=== PATIENT | female | born 1995 | race African-American/Black ===

== ENCOUNTER 2018-11-09 03:28 | Emergency (ER) | payer BC ==
--- NOTE | 2018-11-09 04:04 | ED ---
Complex/Multi-Sys Presentation - HPI Summary HPI Summary: Pt is a 23 y/o F presenting to the ED with a chief complaint of chest pain. The last three days, she reports only sleeping 3.5 hours, and every time she falls asleep she gets panic attacks that jolt her awake. Tonight, she took two hydroxyzine at 0000 that did not help. She called the [place] emergency line who said it could have something to do with the Somis she takes and they recommended calling [id number] at 0256, but instead she drove herself. She has not been told whether or not she has bipolar disorder. She denies SI/HI, sore throat , cough, and chest pain from her heart rate constantly drastically changing. She reports fatigue and feeling chronically anxious. - History Of Current Complaint Chief Complaint: EDChestWallPain Time Seen by Provider: 11/09/18 03:37 Hx Obtained From: Patient Onset/Duration: Gradual Onset, Lasting Days, Still Present Timing: Constant, Days Severity Currently: Moderate Severity Initially: Moderate Location: Negative Aggravating Factor(s): none Alleviating Factor(s): none Associated Signs And Symptoms: Positive: Chest Pain, Other - fatigue, anxiety, insomnia. 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 Denies: Hx Congestive Heart Failure, Hx Hypertension GI History: Reports: Hx Irritable Bowel - DIAGNOSED IN 2013 History: Denies: Hx Renal Disease Sensory History: Reports: Hx Contacts or Glasses - CONTACTS Opthamlomology History: Reports: Hx Contacts or Glasses - CONTACTS Psychiatric History: Reports: Hx Anxiety, Hx Panic Disorder - Surgical History Surgery Procedure, Year, and Place: WHEN YOUNGER HAD TWO SURGERIES ONT MOUTH, DOESNT KNOW WHAT FOR Hx Anesthesia Reactions: Yes - PT REPORTS SLOW RECOVERY FROM GENERAL ANESTHESIA , AND FEELS PAIN WITH LOCAL Infectious Disease History: No Infectious Disease History: Denies: Traveled Outside the [place] in Last 30 Days - Family History Known Family History: Negative: Blood Disorder - Social History Alcohol Use: None Hx Substance Use: No Substance Use Type: Reports: None Hx Tobacco Use: No Smoking Status (MU): Never Smoked Tobacco Review of Systems Positive: Fatigue Negative: Sore Throat Positive: Chest Pain Negative: Cough Positive: Anxious All Other Systems Reviewed And Are Negative: Yes Physical Exam - Summary Physical Exam Summary: VITAL SIGNS: Reviewed. GENERAL: Patient is a well-developed and nourished female who is lying comfortable in the stretcher. Patient is not in any acute respiratory distress. HEAD AND FACE: No signs of trauma. No ecchymosis, hematomas or skull depressions. No sinus tenderness. EYES: PERRLA, EOMI x 2, No injected conjunctiva, no nystagmus. EARS: Hearing grossly intact. Ear canals and tympanic membranes are within normal limits. MOUTH: Oropharynx within normal limits. NECK: Supple, trachea is midline, no adenopathy, no JVD, no carotid bruit, no c- spine tenderness, neck with full ROM. CHEST: Symmetric, no tenderness at palpation LUNGS: Clear to auscultation bilaterally. No wheezing or crackles. CVS: Regular rate and rhythm, S1 and S2 present, no murmurs or gallops appreciated. ABDOMEN: Soft, non-tender. No signs of distention. No rebound no guarding, and no masses palpated. Bowel sounds are normal. EXTREMITIES: FROM in all major joints, no edema, no cyanosis or clubbing. NEURO: Alert and oriented x 3. No acute neurological deficits. Speech is normal and follows commands. SKIN: Dry and warm Triage Information Reviewed: Yes Vital Signs On Initial Exam: Initial Vitals Temp Pulse Resp BP Pulse Ox 100.2 F 97 18 141/91 97 11/09/18 03:29 11/09/18 03:29 11/09/18 03:29 11/09/18 03:29 11/09/18 03:29 Vital Signs Reviewed: Yes Diagnostics - Vital Signs Vital Signs Temp Pulse Resp BP Pulse Ox 11/09/18 03:29 100.2 F 97 18 141/91 97 - Laboratory Result Diagrams: 11/09/18 04:47 11/09/18 04:47 Lab Statement: Any lab studies that have been ordered have been reviewed, and results considered in the medical decision making process. Complex Multi-Symp Course/Dx Course Of Treatment: Pt is a 23 y/o F presenting to the ED with a chief complaint of chest pain. The last three days, she reports only sleeping 3.5 hours, and every time she falls asleep she gets panic attacks that jolt her awake. She denies SI/HI, sore throat, and cough. She reports fatigue and feeling chronically anxious. As of 354, I discussed the case with Lake who will be coming to evaluate the pt. I spoke with Lake after he evaluated the pt who stated the sleeping issues may be related to the recent medication changes. The pt will be d/c'ed with a dx of anxiety. I discussed results with the pt and she is agreeable with this plan. - Diagnoses Provider Diagnoses: Anxiety Discharge - Sign-Out/Discharge Documenting (check all that apply): Patient Departure Patient Received Moderate/Deep Sedation with Procedure: No - Discharge Plan Condition: Stable Disposition: HOME Referrals: Allyn Samuel, [place] [Primary Care Provider] - Additional Instructions: Please follow up with your primary care provider within the next 2-3 days. Return to the ED with any new or worsening symptoms. - Attestation Statements Document Initiated by Scribe: Yes Documenting Scribe: Aditi Lira Provider For Whom Elisa is Documenting (Include Credential): Christopher Rice MD. Scribe Attestation: IAditi, scribed for Christopher Rice MD. on 11/09/18 at 0601. Status of Scribe Document: Ready Consult Consult: [id number] - Spoke with Lake who will be coming to evaluate the patient.
[2018-11-09] MEDS ORDERED: Nicotine Inhaler* 10 MG AMP INH PRN (04:16)
[2018-11-09] MEDS ORDERED: ALPRAZolam TAB* 0.5 MG PO ONE (04:17)
[2018-11-09] MEDS ORDERED: Mouth Piece, Nicotine* 1 EACH CARTRIDGE INH PRN (04:24)
[2018-11-09 04:56] LABS: ABS Basophils 0.1 10^3/ul (0-0.2); ABS Eosinophils 0.4 10^3/ul (0-0.6); ABS Lymphocytes 3.1 10^3/ul (1.0-4.8); ABS Monocytes 0.8 10^3/ul (0-0.8); ABS Neutrophils 4.8 10^3/ul (1.5-7.7); ABS Nucleated RBC 0 10^3/ul; Hematocrit 38 % (33-41); Hemoglobin 12.5 g/dL (12.0-16.0); Lymphocyte % 34.1 %; Mean Corpuscular HGB Conc 33 g/dL (31-36); Mean Corpuscular Hemoglobin 30 pg (27-31); Mean Corpuscular Volume 90 fL (80-97); Mean Platelet Volume 8.3 fL (7.4-10.4); Nucleated Red Blood Cells % 0.1; Platelet Count 295 10^3/uL (150-450); Red Blood Count 4.17 10^6 /uL (3.70-4.87); Red Cell Distribution Width 14 % (10.5-15); White Blood Count 9.2 10^3/uL (3.5-10.8)
[2018-11-09 05:12] LABS: ALT 26 U/L (7-52); AST 23 U/L (13-39); Albumin 4.4 g/dL (3.2-5.2); Albumin/Globulin Ratio 1.7 (1-3); Alkaline Phosphatase 63 U/L (34-104); Anion Gap 4 mmol/L (2-11); BUN/Creatinine Ratio 7.9 (8-20); Blood Urea Nitrogen 6 mg/dL (6-24); CO2 Carbon Dioxide 25 mmol/L (22-32); Calcium 9.2 mg/dL (8.6-10.3); Chloride 107 mmol/L (101-111); EGFR African American 113.1 (>60); EGFR Non-African American 93.5 (>60); Globulin 2.6 g/dL (2-4); Glucose 95 mg/dL (70-100); Potassium 3.4 mmol/L (3.5-5.0); Sodium 136 mmol/L (135-145)
[2018-11-09 05:32] LABS: Acetaminophen < 15 mcg/mL; Alcohol < 10 mg/dL (<10); Lithium 0.82 mmol/L (0.6-1.2); Salicylate < 2.50 mg/dL (<30)
[2018-11-09] MEDS ORDERED: Potassium Chlor TAB* 20 MEQ TAB.ER PO ONE (05:46)
[2018-11-09 05:47] LABS: TSH (Thyroid Stimulating Horm) 5.28 mcIU/mL (0.34-5.60)
[2018-11-09 06:25] VITALS: BP 124/76
== END 2018-11-09 06:20 | disposition home or self-care (01) ==
LOC: ED 03:28
DX: F41.9 Anxiety disorder, unspecified (principal)
CPT/HCPCS: 36415; 80053; 80178; 80320; 80329; 84443; 84702; 85025; 99282; A9270-GY; G0480